=== PATIENT | male | born 1965 | race Caucasian/White ===

== ENCOUNTER 2018-11-09 11:28 | Inpatient (IN) | payer OTHER ==
--- NOTE | 2018-11-09 11:48 | HP ---
CIWA Score Nausea/Vomitin-No Nausea/No Vomiting Muscle Tremors: None Anxiety: 4-Mod. Anxious/Guarded Agitation: 4-Moderately Restless Paroxysmal Sweats: 1-Minimal Palms Moist Orientation: 1-Uncertain about Date Tacttile Disturbances: 2-Mild Itch/Numbness/Burn Auditory Disturbances: 0-None Visual Disturbances: 0-None Headache: 0-None Present (appropriate for admission to alcohol detox) CIWA-Ar Total Score: 12 - Admission Criteria OASAS Guidelines: Admission for Medically Managed Detox: Requires at least one of the followin. CIWA greater than 12 2. Seizures within the past 24 hours 3. Delirium tremens within the past 24 hours 4. Hallucinations within the past 24 hours 5. Acute intervention needed for co occurring medical disorder 6. Acute intervention needed for co occurring psychiatric disorder 7. Severe withdrawal that cannot be handled at a lower level of care (continued vomiting, continued diarrhea, abnormal vital signs) requiring intravenous medication and/or fluids 8. Admission ROS [facility] Chief Complaint: " I need help with alcohol and I can't stop drinking. I also have a cocaine problem. I'm homeless." Allergies/Adverse Reactions: Allergies Allergy/AdvReac Type Severity Reaction Status Date / Time Penicillins Allergy Rash Verified 11/09/18 11:52 History of Present Illness: 53 year old male with history of alcohol dependence and cocaine use disorder. He is drinking 1.5 liters of vodka daily, last drank last night. He blacked out yesterday. He has had seizures in the past. He was here over a year ago. He never smoked ciggarettes. Cocaine was every day 1-2 grams per day, last used yesterday. PMH: Herniated discs and surgery for it in 03/2018, Eczema HTN.on amlodipine Psych: Depression, Anxiety disorder Zoloft in the past. last taken over week ago. ran out meds. - Ebola screening Have you traveled outside of the country in the last 21 days: No Have you had contact with anyone from an Ebola affected area: No Have you been sick,other than usual withdrawal symptoms: No Do you have a fever: No - Review of Systems Constitutional: Diaphoresis EENT: reports: Blurred Vision Respiratory: reports: Cough Cardiac: reports: No Symptoms Reported GI: reports: Constipated, Nausea, Abdominal cramping : reports: No Symptoms Reported Musculoskeletal: reports: No Symptoms Reported Integumentary: reports: Other (eczema) Neuro: reports: Headache, Tremors Endocrine: reports: No Symptoms Reported Hematology: reports: No Symptoms Reported Psychiatric: reports: Judgement Intact, Agitated, Anxious Other Systems: Reviewed and Negative Patient History - Patient Medical History Hx Asthma: No Hx Chronic Obstructive Pulmonary Disease (COPD): No Hx Cardiac Disorders: No Hx Hypertension: Yes Hx Seizures: No Hx Diabetes: No Hx Gastrointestinal Disorders: No Hx Sexually Transmitted Disorders: No Hx Renal Disease (ESRD): No Hx Depression: No - Patient Surgical History Past Surgical History: Yes Other Surgical History: back surgery for herniated discs at [facility] - PPD History Previous Implant?: Yes Documented Results: Negative w/o proof Implanted On Prior R Admission?: Yes Date: 03/31/11 PPD to be Administered?: Yes - Smoking Cessation Smoking history: Never smoked Have you smoked in the past 12 months: No Hx Chewing Tobacco Use: No Initiated information on smoking cessation: Yes 'Breaking Loose' booklet given: 11/09/18 - Substances abused Alcohol Substance route: Oral Frequency: Daily Amount used: 2 LITER OF VODKA Age of first use: 16 Date of last use: 11/08/18 Cocaine Substance route: Inhalation Frequency: Daily Amount used: 2 GRAMS Age of first use: 21 Date of last use: 11/08/18 Admission Physical Exam [facility] - Physical General Appearance: Yes: Mild Distress HEENTM: Yes: EOMI, Hearing grossly Normal, Normocephalic, Normal Voice, FAUSTO, Pharynx Normal, Tm's normal Respiratory: Yes: Chest Non-Tender, Lungs Clear, Normal Breath Sounds, No Respiratory Distress, Accessory Muscle Use Neck: Yes: No masses,lesions,Nodules, Trachea in good position Breast: Yes: Within Normal Limits, Axillae without masses Cardiology: Yes: Regular Rhythm, Regular Rate, S1, S2 Abdominal: Yes: Normal Bowel Sounds, Non Tender, Soft, Protuberent. No: Guarding, Rebound, Tenderness Genitourinary: Yes: Within Normal Limits Back: Yes: Within Normal Limits Musculoskeletal: Yes: full range of Motion, Gait Steady Extremities: Yes: Normal Capillary Refill, Normal Inspection, Normal Range of Motion Neurological: Yes: director mission II-XII NML intact, Fully Oriented, Alert, Motor Strength 5/5, Normal Mood/Affect Integumentary: Yes: Normal Color, Warm Lymphatic: Yes: Within Normal Limits - Diagnostic (1) Alcohol dependence with uncomplicated withdrawal Current Visit: Yes Status: Acute (2) Hypertension Current Visit: Yes Status: Acute (3) Lumbar disc herniation Current Visit: Yes Status: Chronic Screened but not Admitted - Documentation of Visit Screened but not Admitted: No Left Prior to Completion of Assessment: No Insurance Authorization Denied: No Patient Does Not Meet Criteria for Admission: No Alternative Treatment/Penitentiary Info Provided: No Vital Signs - Vital Signs Vital signs refused: No Temperature: 97.8 F Temperature source: Oral Pulse Rate: 71 Respiratory Rate: 20 Blood Pressure: 167/91 BP Location: Left Arm Blood Pressure position: Sitting - Height Height: 5 ft 2 in - Weight Weight: 170 lb Weight measurement method: Standing scale - BMI Body Mass Index (BMI): 31.1 - Bowel Function Bowel Movement: No Inpatient Rehab Admission - Rehab Decision to Admit Inpatient rehab admission?: No - Initial Determination Are CD services needed?: No Free of communicable disease: No Not in need of hospitalization: No - Rehab Admission Criteria Previous failed treatment: No Poor recovery environment: No Comorbidities: No Lacks judgement: No Patient is meeting Inpatient Rehab admission criteria:: No
[2018-11-09 11:59] VITALS: BMI 31.1
[2018-11-09] MEDS ORDERED: METHOCARBAMOL 500 MG TABLET PO PRN (12:24)
[2018-11-09] MEDS ORDERED: hydrOXYzine PAMOATE 25 MG CAPSULE (FP) PO PRN (12:24)
[2018-11-09] MEDS ORDERED: MAGNESIUM HYDROX 2400MG/30ML ORAL SUSPENSION 30 ML CUP PO PRN (12:24)
[2018-11-09] MEDS ORDERED: ACETAMINOPHEN 325 MG TABLET (FP) PO PRN ×2 (12:24)
[2018-11-09] MEDS ORDERED: MAG HYDROX/AL HYDROX/SIMETH 30 ML UNIT-DOSE CUP PO PRN (12:24)
[2018-11-09] MEDS ORDERED: BISMUTH SUBSALICYLATE 524 MG/30 ML UD PO PRN (12:24)
[2018-11-09] MEDS ORDERED: MENTHOL/PHENOL 1 EACH UD MM PRN (12:24)
[2018-11-09] MEDS ORDERED: MAGNESIUM CITRATE 300 ML BOTTLE PO PRN (12:24)
[2018-11-09] MEDS ORDERED: IBUPROFEN 400 MG TABLET (FP) PO PRN (12:24)
[2018-11-09] MEDS ORDERED: chlordiazePOXIDE HCL 10 MG CAPSULE PO PRN (12:24)
[2018-11-09] MEDS: amLODIPine BESYLATE 10 MG TABLET (FP) PO SCH (13:36)
[2018-11-09] MEDS: chlordiazePOXIDE HCL 25 MG CAPSULE PO SCH ×2 (13:37→21:45)
[2018-11-09] MEDS ORDERED: SERTRALINE HCL 50 MG TABLET (FP) PO ONE (13:45)
[2018-11-09 15:40] LABS: HEMATOCRIT 43.8 % (35.4-49); HEMOGLOBIN 14.3 GM/dL (11.7-16.9); MCH 29.6 pg (25.7-33.7); MCHC 32.6 g/dl (32.0-35.9); MEAN CELL VOLUME 90.7 fl (80-96); MEAN PLT VOLUME 9.6 fl (7.5-11.1); PLATELET COUNT 253 K/MM3 (134-434); RBC 4.82 M/mm3 (4.00-5.60); RDW 14.5 % (11.9-15.9); WHITE BLOOD COUNT 7.9 K/mm3 (4.0-10.0)
[2018-11-09 15:49] LABS: ALBUMIN 3.8 g/dl (3.4-5.0); BILIRUBIN,TOTAL 0.5 mg/dL (0.2-1); CALCIUM 9.8 mg/dL (8.5-10.1); CREATININE 0.9 mg/dL (0.55-1.3); POTASSIUM 4.2 mmol/L (3.5-5.1); TOT PROT 7.4 g/dl (6.4-8.2)
[2018-11-09] MEDS: MELATONIN 5 MG TABLETS PO PRN (21:45)
[2018-11-09] MEDS: THIAMINE HCL 100 MG TABLET (FP) PO SCH (21:45)
[2018-11-09] MEDS: HYDROCORTISONE 0.5% TOPICAL CREAM 30 GM TUBE TP SCH (21:46)
[2018-11-10] MEDS: chlordiazePOXIDE HCL 25 MG CAPSULE PO SCH ×3 (06:24→22:39)
[2018-11-10] MEDS ORDERED: hydrOXYzine HCL 25 MG TABLET (FP) PO SCH (10:00)
[2018-11-10] MEDS: amLODIPine BESYLATE 10 MG TABLET (FP) PO SCH (10:04)
[2018-11-10] MEDS: HYDROCORTISONE 0.5% TOPICAL CREAM 30 GM TUBE TP SCH ×2 (10:06→22:39)
[2018-11-10] MEDS: PRENATAL VITAMINS W/ FOLIC ACID TABLET (FP) PO SCH (10:07)
--- NOTE | 2018-11-10 10:19 | CONSULT ---
[facility] Psychiatric Consult - Data Date of interview: 11/10/18 Admission source: [facility] Identifying data: Mr Singleton is a 53 years old single male, father of 4 children, unemployed receiving public assistance, homeless seeking detox treatment for alcohol and cocaine Substance Abuse History: Reports history of alcohol and cocaine use. Refer to addiction counselor's summary for further information Medical History: Significant for hypertension, eczema, history of back surgery. Psychiatric History: Reports that his first psychiatric contact was in 2017 when he was prescribed Zoloft 100 mg/day for depression and Vistaril for anxiety while in residential program at [facility]. He said that he was there for a year and discharged in February 2018. Reports that following discharge from [facility], he was prescribed medications by a psychiatrist at [facility], a clinic in [facility]. He said that he went back to residential at [facility] for another 4 months and he was continued on medications. He was discharged in September 16, 2018 and he went back to [facility] for medication management till he relapsed a few days ago. Denies previous psychiatric hospitalization or suicidal attemot. At present, reports feeling depressed and sleeping poorly Physical/Sexual Abuse/Trauma History: Denies history of emotional, physical or sexual abuse as well as DV relationship. Reports serving in the [employer] from [employer] to 1987. Additional Comment: Reports history of 2 previous arrests including one felony conviction on charges ogf grand gomes.Denies being on parole/probatio at present Mental Status Exam - Mental Status Exam Alert and Oriented to: Time, Place, Person Cognitive Function: Fair Patient Appearance: Well Groomed Mood: Depressed Affect: Appropriate Patient Behavior: Cooperative Speech Pattern: Clear Voice Loudness: Normal Thought Process: Intact, Goal Oriented Thought Disorder: Not Present Hallucinations: Denies Suicidal Ideation: Denies Homicidal Ideation: Denies Insight/Judgement: Poor Sleep: Poorly Appetite: Fair Muscle strength/Tone: Normal Gait/Station: Normal Psychiatric Findings - Problem List ([place] 1, 2,3) (1) Depressive disorder Current Visit: Yes Status: Chronic (2) MDD (major depressive disorder) Current Visit: Yes Status: Ruled-out (3) Substance induced mood disorder Current Visit: Yes Status: Acute (4) Substance-induced sleep disorder Current Visit: Yes Status: Acute (5) Alcohol dependence with uncomplicated withdrawal Current Visit: Yes Status: Acute (6) Cocaine dependence Current Visit: Yes Status: Acute (7) Hypertension Current Visit: Yes Status: Acute (8) Lumbar disc herniation Current Visit: Yes Status: Resolved - Initial Treatment Plan Initial Treatment Plan: 1) Resume Zoloft 100 mg po daily. 2) Start Vistaril 50 mg po Q 4hrs prn for anxiety. 3) Continue inpatient detoxificatio
[2018-11-10] MEDS: SERTRALINE HCL 50 MG TABLET (FP) PO SCH (10:54)
--- NOTE | 2018-11-10 12:58 | PN ---
[facility] CIWA - CIWA Score Nausea/Vomitin-Mild Nausea/No Vomiting Muscle Tremors: 2 Anxiety: 3 Agitation: 2 Paroxysmal Sweats: 1-Minimal Palms Moist Orientation: 0-Oriented Tacttile Disturbances: 1-Very Mild Itch/Numbness Auditory Disturbances: 0-None Visual Disturbances: 0-None Headache: 1-Very Mild CIWA-Ar Total Score: 11 S Progress Note (SOAP) Subjective: alert,irritable,anxious,interrupted sleep,tremor Objective: 11/10/18 12:54 Vital Signs Temperature 97.1 F L 11/10/18 09:34 Pulse Rate 75 11/10/18 09:34 Respiratory Rate 18 11/10/18 09:34 Blood Pressure 157/91 11/10/18 09:34 O2 Sat by Pulse Oximetry (%) 11/10/18 12:55 Laboratory Last Values WBC 7.9 K/mm3 (4.0-10.0) 11/09/18 12:40 RBC 4.82 M/mm3 (4.00-5.60) 11/09/18 12:40 Hgb 14.3 GM/dL (11.7-16.9) 11/09/18 12:40 Hct 43.8 % (35.4-49) 11/09/18 12:40 MCV 90.7 fl (80-96) 11/09/18 12:40 MCH 29.6 pg (25.7-33.7) 11/09/18 12:40 MCHC 32.6 g/dl (32.0-35.9) 11/09/18 12:40 RDW 14.5 % (11.9-15.9) 11/09/18 12:40 Plt Count 253 K/MM3 (134-434) D 11/09/18 12:40 MPV 9.6 fl (7.5-11.1) 11/09/18 12:40 Sodium 140 mmol/L (136-145) 11/09/18 12:40 Potassium 4.2 mmol/L (3.5-5.1) 11/09/18 12:40 Chloride 103 mmol/L (98-107) 11/09/18 12:40 Carbon Dioxide 30 mmol/L (21-32) 11/09/18 12:40 Anion Gap 7 MMOL/L (8-16) L 11/09/18 12:40 BUN 18.0 mg/dL (7-18) 11/09/18 12:40 Creatinine 0.9 mg/dL (0.55-1.3) 11/09/18 12:40 Est GFR (CKD-EPI)AfAm 113.41 11/09/18 12:40 Est GFR (CKD-EPI)NonAf 97.85 11/09/18 12:40 Random Glucose 69 mg/dL (74-106) L 11/09/18 12:40 Calcium 9.8 mg/dL (8.5-10.1) 11/09/18 12:40 Total Bilirubin 0.5 mg/dL (0.2-1) 11/09/18 12:40 AST 18 U/L (15-37) 11/09/18 12:40 ALT 26 U/L (13-61) 11/09/18 12:40 Alkaline Phosphatase 57 U/L (45-117) 11/09/18 12:40 Total Protein 7.4 g/dl (6.4-8.2) 11/09/18 12:40 Albumin 3.8 g/dl (3.4-5.0) 11/09/18 12:40 RPR Titer Nonreactive (NONREACTIVE) 11/09/18 12:40 Assessment: 11/10/18 12:58 withdrawal symptom Plan: continue detox librium regimen,initial glucose 69,bgm in am
[2018-11-10] MEDS: THIAMINE HCL 100 MG TABLET (FP) PO SCH (22:39)
[2018-11-10] MEDS: MELATONIN 5 MG TABLETS PO PRN (22:39)
[2018-11-11] MEDS: chlordiazePOXIDE 5 MG CAPSULE PO SCH ×3 (07:13→22:18)
[2018-11-11] MEDS: PRENATAL VITAMINS W/ FOLIC ACID TABLET (FP) PO SCH (09:15)
[2018-11-11] MEDS: HYDROCORTISONE 0.5% TOPICAL CREAM 30 GM TUBE TP SCH ×2 (09:15→22:19)
[2018-11-11] MEDS: amLODIPine BESYLATE 10 MG TABLET (FP) PO SCH (09:15)
[2018-11-11] MEDS: SERTRALINE HCL 50 MG TABLET (FP) PO SCH (09:16)
[2018-11-11] MEDS: hydrOXYzine PAMOATE 50 MG CAPSULE (FP) PO PRN ×2 (12:12→19:55)
--- NOTE | 2018-11-11 12:19 | PN ---
[facility] CIWA - CIWA Score Nausea/Vomitin Muscle Tremors: 2 Anxiety: 1-Mildly Anxious Agitation: 0-Normal Activity Paroxysmal Sweats: 2 Orientation: 0-Oriented Tacttile Disturbances: 2-Mild Itch/Numbness/Burn Auditory Disturbances: 0-None Visual Disturbances: 0-None Headache: 1-Very Mild CIWA-Ar Total Score: 11 S Progress Note (SOAP) Subjective: c/o of nausea, constipation, chill, interrupted sleep Objective: 11/11/18 12:25 Vital Signs Temperature 97.7 F 11/11/18 09:24 Pulse Rate 83 11/11/18 09:24 Respiratory Rate 18 11/11/18 09:24 Blood Pressure 139/92 11/11/18 09:24 O2 Sat by Pulse Oximetry (%) Laboratory Last Values WBC 7.9 K/mm3 (4.0-10.0) 11/09/18 12:40 RBC 4.82 M/mm3 (4.00-5.60) 11/09/18 12:40 Hgb 14.3 GM/dL (11.7-16.9) 11/09/18 12:40 Hct 43.8 % (35.4-49) 11/09/18 12:40 MCV 90.7 fl (80-96) 11/09/18 12:40 MCH 29.6 pg (25.7-33.7) 11/09/18 12:40 MCHC 32.6 g/dl (32.0-35.9) 11/09/18 12:40 RDW 14.5 % (11.9-15.9) 11/09/18 12:40 Plt Count 253 K/MM3 (134-434) D 11/09/18 12:40 MPV 9.6 fl (7.5-11.1) 11/09/18 12:40 Sodium 140 mmol/L (136-145) 11/09/18 12:40 Potassium 4.2 mmol/L (3.5-5.1) 11/09/18 12:40 Chloride 103 mmol/L (98-107) 11/09/18 12:40 Carbon Dioxide 30 mmol/L (21-32) 11/09/18 12:40 Anion Gap 7 MMOL/L (8-16) L 11/09/18 12:40 BUN 18.0 mg/dL (7-18) 11/09/18 12:40 Creatinine 0.9 mg/dL (0.55-1.3) 11/09/18 12:40 Est GFR (CKD-EPI)AfAm 113.41 11/09/18 12:40 Est GFR (CKD-EPI)NonAf 97.85 11/09/18 12:40 POC Glucometer 87 UNITS (80-120) 11/11/18 07:17 Random Glucose 69 mg/dL (74-106) L 11/09/18 12:40 Calcium 9.8 mg/dL (8.5-10.1) 11/09/18 12:40 Total Bilirubin 0.5 mg/dL (0.2-1) 11/09/18 12:40 AST 18 U/L (15-37) 11/09/18 12:40 ALT 26 U/L (13-61) 11/09/18 12:40 Alkaline Phosphatase 57 U/L (45-117) 11/09/18 12:40 Total Protein 7.4 g/dl (6.4-8.2) 11/09/18 12:40 Albumin 3.8 g/dl (3.4-5.0) 11/09/18 12:40 RPR Titer Nonreactive (NONREACTIVE) 11/09/18 12:40 labs reviewed Assessment: Aox3 no acute distress WNL EENT no abdominal tenderness full ROM no gait abnormality Plan: increase PO fluids continue detox continue to monitor
[2018-11-11] MEDS: MELATONIN 5 MG TABLETS PO PRN (22:18)
[2018-11-11] MEDS: THIAMINE HCL 100 MG TABLET (FP) PO SCH (22:18)
[2018-11-12] MEDS ORDERED: chlordiazePOXIDE HCL 10 MG CAPSULE PO PRN
[2018-11-12] MEDS: chlordiazePOXIDE HCL 10 MG CAPSULE PO SCH ×3 (07:27→21:43)
[2018-11-12] MEDS: amLODIPine BESYLATE 10 MG TABLET (FP) PO SCH (10:35)
[2018-11-12] MEDS: PRENATAL VITAMINS W/ FOLIC ACID TABLET (FP) PO SCH (10:35)
[2018-11-12] MEDS: SERTRALINE HCL 50 MG TABLET (FP) PO SCH (10:35)
[2018-11-12] MEDS: HYDROCORTISONE 0.5% TOPICAL CREAM 30 GM TUBE TP SCH ×2 (10:35→21:43)
--- NOTE | 2018-11-12 12:07 | PN ---
S CIWA - CIWA Score Nausea/Vomitin-No Nausea/No Vomiting Muscle Tremors: None Anxiety: 2 Agitation: 0-Normal Activity Paroxysmal Sweats: 2 Orientation: 0-Oriented Tacttile Disturbances: 0-None Auditory Disturbances: 0-None Visual Disturbances: 0-None Headache: 2-Mild CIWA-Ar Total Score: 6 [facility] Progress Note (SOAP) Subjective: c/o anxiety, sweats, and headache. Objective: 11/12/18 12:05 Vital Signs 11/12/18 11/12/18 07:24 09:50 Temperature 97.9 F 98.2 F Pulse Rate 61 68 Respiratory 18 17 Rate Blood Pressure 119/74 112/64 Lab Results WBC 7.9 K/mm3 (4.0-10.0) 11/09/18 12:40 RBC 4.82 M/mm3 (4.00-5.60) 11/09/18 12:40 Hgb 14.3 GM/dL (11.7-16.9) 11/09/18 12:40 Hct 43.8 % (35.4-49) 11/09/18 12:40 MCV 90.7 fl (80-96) 11/09/18 12:40 MCHC 32.6 g/dl (32.0-35.9) 11/09/18 12:40 RDW 14.5 % (11.9-15.9) 11/09/18 12:40 Plt Count 253 K/MM3 (134-434) D 11/09/18 12:40 Sodium 140 mmol/L (136-145) 11/09/18 12:40 Potassium 4.2 mmol/L (3.5-5.1) 11/09/18 12:40 Chloride 103 mmol/L (98-107) 11/09/18 12:40 Carbon Dioxide 30 mmol/L (21-32) 11/09/18 12:40 Anion Gap 7 MMOL/L (8-16) L 11/09/18 12:40 BUN 18.0 mg/dL (7-18) 11/09/18 12:40 Creatinine 0.9 mg/dL (0.55-1.3) 11/09/18 12:40 Random Glucose 69 mg/dL (74-106) L 11/09/18 12:40 Calcium 9.8 mg/dL (8.5-10.1) 11/09/18 12:40 Labs noted. Assessment: 11/12/18 12:06 AOX3, in no acute respiratory distress. Full ROM, ambulating in the unit. Withdrawal symptoms. For D/C tmoro. 11/12/18 12:06 Plan: continue detox. D/C in AM.
[2018-11-12] MEDS: THIAMINE HCL 100 MG TABLET (FP) PO SCH (21:43)
[2018-11-12] MEDS: MELATONIN 5 MG TABLETS PO PRN (21:43)
[2018-11-13] MEDS ORDERED: chlordiazePOXIDE HCL 10 MG CAPSULE PO ONE (05:00)
[2018-11-13 10:07] VITALS: BP 144/73; PULSE 57; TEMP 97.7
[2018-11-13] MEDS: amLODIPine BESYLATE 10 MG TABLET (FP) PO SCH (10:12)
[2018-11-13] MEDS: PRENATAL VITAMINS W/ FOLIC ACID TABLET (FP) PO SCH (10:12)
[2018-11-13] MEDS: SERTRALINE HCL 50 MG TABLET (FP) PO SCH (10:12)
[2018-11-13] MEDS: HYDROCORTISONE 0.5% TOPICAL CREAM 30 GM TUBE TP SCH (10:12)
[2018-11-13] MEDS: hydrOXYzine PAMOATE 50 MG CAPSULE (FP) PO PRN (10:15)
--- NOTE | 2018-11-13 13:16 | DS ---
[facility] Detox Discharge Summary Admission Date: 11/09/18 Discharge Date: 11/13/18 - History Present History: Alcohol Dependence, Cocaine Dependence Additional Comments: Patient completed detox successfully and accepted admission to [facility]. Patient is stable and denies any complaints. Pertinent Past History: ETOH dependence Cocaine dependenc HTN Eczema Anxiety and Depression - Physical Exam Results Vital Signs: Vital Signs Temperature 97.7 F 11/13/18 10:06 Pulse Rate 57 L 11/13/18 10:06 Respiratory Rate 18 11/13/18 10:06 Blood Pressure 144/73 11/13/18 10:06 O2 Sat by Pulse Oximetry (%) Pertinent Admission Physical Exam Findings: Withdrawal sxs Laboratory Tests 11/09/18 11/09/18 11/09/18 12:40 12:40 12:40 WBC 7.9 RBC 4.82 Hgb 14.3 Hct 43.8 MCV 90.7 MCH 29.6 MCHC 32.6 RDW 14.5 Plt Count 253 D MPV 9.6 Sodium 140 Potassium 4.2 Chloride 103 Carbon Dioxide 30 Anion Gap 7 L BUN 18.0 Creatinine 0.9 Est GFR (CKD-EPI)AfAm 113.41 Est GFR (CKD-EPI)NonAf 97.85 POC Glucometer Random Glucose 69 L Calcium 9.8 Total Bilirubin 0.5 AST 18 ALT 26 Alkaline Phosphatase 57 Total Protein 7.4 Albumin 3.8 RPR Titer Nonreactive 11/11/18 11/12/18 11/13/18 07:17 07:01 06:57 WBC RBC Hgb Hct MCV MCH MCHC RDW Plt Count MPV Sodium Potassium Chloride Carbon Dioxide Anion Gap BUN Creatinine Est GFR (CKD-EPI)AfAm Est GFR (CKD-EPI)NonAf POC Glucometer 87 94 92 Random Glucose Calcium Total Bilirubin AST ALT Alkaline Phosphatase Total Protein Albumin RPR Titer Labs reviewed - Medication Discharge Medications: Ambulatory Orders Amlodipine Besylate [Norvasc -] 10 mg PO DAILY 11/09/18 Hydroxyzine HCl 50 mg PO DAILY 11/09/18 Sertraline HCl [Zoloft -] 100 mg PO DAILY 11/09/18 - Diagnosis (1) Eczema Current Visit: Yes Status: Acute (2) Anxiety and depression Current Visit: Yes Status: Chronic (3) Alcohol dependence with uncomplicated withdrawal Current Visit: Yes Status: Acute (4) Cocaine dependence Current Visit: Yes Status: Chronic (5) Hypertension Current Visit: Yes Status: Chronic - AMA Did Patient Leave Against Medical Advice: No (Patient accepted admission to [facility])
== END 2018-11-13 12:18 | disposition other institution (70) | DRG 774 ==
LOC: YASAS 11:28 → Y6N 12:47
PROVIDERS: ADMIT Surgery; ATTEND Surgery
PROC: HZ2ZZZZ Detoxification Services for Substance Abuse Treatment (ICD-10-PCS; principal; 2018-11-09)
DX: F14.20 Cocaine dependence, uncomplicated (principal); F32.9 Major depressive disorder, single episode, unspecified; F41.9 Anxiety disorder, unspecified; F19.24 Other psychoactive substance dependence with psychoactive substance-induced mood disorder; F19.282 Other psychoactive substance dependence with psychoactive substance-induced sleep disorder; I10 Essential (primary) hypertension; L30.9 Dermatitis, unspecified; M51.26 Other intervertebral disc displacement, lumbar region
CPT/HCPCS: 36415; 80053; 82962; 85027; 86593

== ENCOUNTER 2018-11-13 12:37 | Inpatient (IN) | payer OTHER ==
--- NOTE | 2018-11-13 13:01 | HP ---
[facility] Rehab Assess/Revision - Admission History Admitted to Rehab from: [facility] Date of Admission to Rehab: 11/13/18 - Findings Detox History & Physical reviewed: Yes Concur with findings: Yes Inpatient Rehab Admission - Rehab Decision to Admit Inpatient rehab admission?: Yes - Initial Determination Are CD services needed?: No Free of communicable disease: Yes Not in need of hospitalization: Yes - Rehab Admission Criteria Previous failed treatment: Yes Poor recovery environment: Yes Comorbidities: Yes Lacks judgement: Yes Patient is meeting Inpatient Rehab admission criteria:: Yes
[2018-11-13] MEDS ORDERED: P-EPHED 60MG/TRIPROLIDI 2.5MG TABLET PO PRN (13:05)
[2018-11-13] MEDS ORDERED: IBUPROFEN 400 MG TABLET (FP) PO PRN (13:05)
[2018-11-13] MEDS ORDERED: MAGNESIUM CITRATE 300 ML BOTTLE PO PRN (13:05)
[2018-11-13] MEDS ORDERED: LOPERAMIDE HCL 2 MG CAPSULE PO PRN (13:05)
[2018-11-13] MEDS ORDERED: MENTHOL/PHENOL 1 EACH UD MM PRN (13:05)
[2018-11-13] MEDS ORDERED: NICOTINE POLACRILEX 2 MG GUM BUC PRN (13:05)
[2018-11-13] MEDS ORDERED: guaiFENesin 200 MG/10 ML 10 ML UNIT-DOSE CUPS PO PRN (13:05)
[2018-11-13] MEDS: MELATONIN 5 MG TABLETS PO PRN (21:34)
[2018-11-13] MEDS: THIAMINE HCL 100 MG TABLET (FP) PO SCH (21:34)
[2018-11-13] MEDS: hydrOXYzine PAMOATE 50 MG CAPSULE (FP) PO PRN (21:35)
[2018-11-14] MEDS ORDERED: HYDROCORTISONE 0.5% TOPICAL CREAM 30 GM TUBE TP PRN (08:34)
[2018-11-14] MEDS: PRENATAL VITAMINS W/ FOLIC ACID TABLET (FP) PO SCH (10:16)
[2018-11-14] MEDS: amLODIPine BESYLATE 10 MG TABLET (FP) PO SCH (10:16)
[2018-11-14] MEDS: SERTRALINE HCL 50 MG TABLET (FP) PO SCH (10:17)
[2018-11-14] MEDS: hydrOXYzine PAMOATE 50 MG CAPSULE (FP) PO PRN ×3 (10:18→21:18)
[2018-11-14] MEDS ORDERED: PNEUMOC 13-VAL CONJ-DIP CRM/PF 0.5 ML DISP.SYRIN IM ONE (12:00)
[2018-11-14] MEDS: THIAMINE HCL 100 MG TABLET (FP) PO SCH (21:16)
[2018-11-14] MEDS: MAGNESIUM HYDROX 2400MG/30ML ORAL SUSPENSION 30 ML CUP PO PRN (21:17)
[2018-11-14] MEDS: MELATONIN 5 MG TABLETS PO PRN (21:17)
--- NOTE | 2018-11-15 09:49 | PN ---
[facility] Progress Note Note: Pt seen for a new cream for eczema. Pt states hydrocortisone is not working for him. Would like something stronger. Lidex ordered for lesions on forearm and elbows. Pt has prn vistaril, which may help with itching.
[2018-11-15] MEDS: amLODIPine BESYLATE 10 MG TABLET (FP) PO SCH (10:11)
[2018-11-15] MEDS: PRENATAL VITAMINS W/ FOLIC ACID TABLET (FP) PO SCH (10:11)
[2018-11-15] MEDS: SERTRALINE HCL 50 MG TABLET (FP) PO SCH (10:11)
[2018-11-15] MEDS: hydrOXYzine PAMOATE 50 MG CAPSULE (FP) PO PRN ×2 (10:11→18:27)
[2018-11-15] MEDS: FLUOCINONIDE 0.05% TOP OINT (60 GM TUBE) TP SCH ×2 (11:17→21:27)
[2018-11-15] MEDS: THIAMINE HCL 100 MG TABLET (FP) PO SCH (21:27)
[2018-11-15] MEDS: MELATONIN 5 MG TABLETS PO PRN (21:28)
--- NOTE | 2018-11-16 07:54 | PN ---
S Progress Note Note: Patient complains of sleeping poorly despite taking Melatonin 5 mg/hs prn. Discussed with hypnotic properties of Belsomra and he agreed to try it
[2018-11-16] MEDS: PRENATAL VITAMINS W/ FOLIC ACID TABLET (FP) PO SCH (09:50)
[2018-11-16] MEDS: amLODIPine BESYLATE 10 MG TABLET (FP) PO SCH (09:50)
[2018-11-16] MEDS: SERTRALINE HCL 50 MG TABLET (FP) PO SCH (09:50)
[2018-11-16] MEDS: hydrOXYzine PAMOATE 50 MG CAPSULE (FP) PO PRN ×3 (09:51→21:14)
[2018-11-16] MEDS: FLUOCINONIDE 0.05% TOP OINT (60 GM TUBE) TP SCH ×2 (09:52→21:15)
[2018-11-16] MEDS: THIAMINE HCL 100 MG TABLET (FP) PO SCH (21:13)
[2018-11-16] MEDS: MELATONIN 5 MG TABLETS PO PRN (21:14)
[2018-11-17] MEDS: SERTRALINE HCL 50 MG TABLET (FP) PO SCH (10:21)
[2018-11-17] MEDS: PRENATAL VITAMINS W/ FOLIC ACID TABLET (FP) PO SCH (10:21)
[2018-11-17] MEDS: amLODIPine BESYLATE 10 MG TABLET (FP) PO SCH (10:21)
[2018-11-17] MEDS: FLUOCINONIDE 0.05% TOP OINT (60 GM TUBE) TP SCH ×2 (10:22→21:35)
[2018-11-17] MEDS: hydrOXYzine PAMOATE 50 MG CAPSULE (FP) PO PRN ×3 (10:22→21:36)
[2018-11-17] MEDS: SUVOREXANT 10 MG TABLET PO PRN (21:34)
[2018-11-17] MEDS: THIAMINE HCL 100 MG TABLET (FP) PO SCH (21:34)
[2018-11-18] MEDS: PRENATAL VITAMINS W/ FOLIC ACID TABLET (FP) PO SCH (10:14)
[2018-11-18] MEDS: amLODIPine BESYLATE 10 MG TABLET (FP) PO SCH (10:14)
[2018-11-18] MEDS: SERTRALINE HCL 50 MG TABLET (FP) PO SCH (10:14)
[2018-11-18] MEDS: hydrOXYzine PAMOATE 50 MG CAPSULE (FP) PO PRN ×3 (10:15→21:10)
[2018-11-18] MEDS: FLUOCINONIDE 0.05% TOP OINT (60 GM TUBE) TP SCH ×2 (10:16→21:09)
[2018-11-18] MEDS: MELATONIN 5 MG TABLETS PO PRN (21:09)
[2018-11-18] MEDS: THIAMINE HCL 100 MG TABLET (FP) PO SCH (21:09)
[2018-11-18] MEDS: SUVOREXANT 10 MG TABLET PO PRN (21:10)
[2018-11-19] MEDS: SERTRALINE HCL 50 MG TABLET (FP) PO SCH (09:26)
[2018-11-19] MEDS: amLODIPine BESYLATE 10 MG TABLET (FP) PO SCH (09:26)
[2018-11-19] MEDS: PRENATAL VITAMINS W/ FOLIC ACID TABLET (FP) PO SCH (09:26)
[2018-11-19] MEDS: hydrOXYzine PAMOATE 50 MG CAPSULE (FP) PO PRN ×2 (09:26→16:33)
[2018-11-19] MEDS: FLUOCINONIDE 0.05% TOP OINT (60 GM TUBE) TP SCH ×2 (09:27→21:22)
[2018-11-19] MEDS: MAG HYDROX/AL HYDROX/SIMETH 30 ML UNIT-DOSE CUP PO PRN (14:47)
[2018-11-19] MEDS: ACETAMINOPHEN 325 MG TABLET (FP) PO PRN (16:33)
[2018-11-19] MEDS: THIAMINE HCL 100 MG TABLET (FP) PO SCH (21:22)
[2018-11-19] MEDS: SUVOREXANT 10 MG TABLET PO PRN (21:23)
[2018-11-20] MEDS: amLODIPine BESYLATE 10 MG TABLET (FP) PO SCH (09:08)
[2018-11-20] MEDS: PRENATAL VITAMINS W/ FOLIC ACID TABLET (FP) PO SCH (09:08)
[2018-11-20] MEDS: SERTRALINE HCL 50 MG TABLET (FP) PO SCH (09:08)
[2018-11-20] MEDS: FLUOCINONIDE 0.05% TOP OINT (60 GM TUBE) TP SCH ×2 (09:09→21:05)
[2018-11-20] MEDS: hydrOXYzine PAMOATE 50 MG CAPSULE (FP) PO PRN ×2 (09:09→13:58)
[2018-11-20] MEDS: ACETAMINOPHEN 325 MG TABLET (FP) PO PRN (13:58)
[2018-11-20] MEDS: MAG HYDROX/AL HYDROX/SIMETH 30 ML UNIT-DOSE CUP PO PRN ×2 (15:20→21:06)
[2018-11-20] MEDS: MELATONIN 5 MG TABLETS PO PRN (21:05)
[2018-11-20] MEDS: THIAMINE HCL 100 MG TABLET (FP) PO SCH (21:05)
[2018-11-20] MEDS: SUVOREXANT 10 MG TABLET PO PRN (21:07)
[2018-11-21] MEDS: PRENATAL VITAMINS W/ FOLIC ACID TABLET (FP) PO SCH (09:42)
[2018-11-21] MEDS: SERTRALINE HCL 50 MG TABLET (FP) PO SCH (09:42)
[2018-11-21] MEDS: amLODIPine BESYLATE 10 MG TABLET (FP) PO SCH (09:42)
[2018-11-21] MEDS: hydrOXYzine PAMOATE 50 MG CAPSULE (FP) PO PRN ×3 (09:43→21:28)
[2018-11-21] MEDS: FLUOCINONIDE 0.05% TOP OINT (60 GM TUBE) TP SCH ×2 (09:44→21:25)
[2018-11-21] MEDS: THIAMINE HCL 100 MG TABLET (FP) PO SCH (21:25)
[2018-11-21] MEDS: SUVOREXANT 10 MG TABLET PO PRN (21:27)
[2018-11-22] MEDS: hydrOXYzine PAMOATE 50 MG CAPSULE (FP) PO PRN ×3 (09:36→19:19)
[2018-11-22] MEDS: amLODIPine BESYLATE 10 MG TABLET (FP) PO SCH (09:36)
[2018-11-22] MEDS: SERTRALINE HCL 50 MG TABLET (FP) PO SCH (09:36)
[2018-11-22] MEDS: PRENATAL VITAMINS W/ FOLIC ACID TABLET (FP) PO SCH (09:36)
[2018-11-22] MEDS: FLUOCINONIDE 0.05% TOP OINT (60 GM TUBE) TP SCH ×2 (09:37→21:04)
[2018-11-22] MEDS: THIAMINE HCL 100 MG TABLET (FP) PO SCH (21:04)
[2018-11-22] MEDS: MELATONIN 5 MG TABLETS PO PRN (21:05)
[2018-11-22] MEDS: SUVOREXANT 10 MG TABLET PO PRN (21:05)
[2018-11-23] MEDS: hydrOXYzine PAMOATE 50 MG CAPSULE (FP) PO PRN ×3 (10:44→21:11)
[2018-11-23] MEDS: amLODIPine BESYLATE 10 MG TABLET (FP) PO SCH (10:44)
[2018-11-23] MEDS: SERTRALINE HCL 50 MG TABLET (FP) PO SCH (10:44)
[2018-11-23] MEDS: FLUOCINONIDE 0.05% TOP OINT (60 GM TUBE) TP SCH ×2 (10:44→21:09)
[2018-11-23] MEDS: PRENATAL VITAMINS W/ FOLIC ACID TABLET (FP) PO SCH (10:44)
--- NOTE | 2018-11-23 11:25 | PN ---
[facility] Progress Note (SOAP) Subjective: patient told counselor that he wanted to hurt himself. Was immediately seen by counselor and corporate physical security supervisor. At that time he denied that he wanted to hurt himself and that he was only saying that because of how bad her felt. Denied having a plan. Reviewed the same with patient, who confirmed that he only said he wanted to hurt himself because he did not want to go to [facility] [employer] in-[facility], but a snf house. Endorsed to this provider that he did not have a plan. Described the issues that lead to his feelings, ETOH use, loss of belongings, loss of friend after an argument, living in a half-way. He wants psychiatric therapy when he is discharged to help deal with his depression. He is presently on zoloft for his depression. States his depression is "On top of me." Objective: General: depressed affect. HEENTM: PERRLA, normocephalic Lungs: clear Heart: s1 s2 Abd: soft, +BS Neuro: CN 2-12 intact. 11/23/18 11:23 Vital Signs (72 hours) 11/21/18 11/21/18 11/21/18 00:30 03:30 07:00 Temperature 98 F Pulse Rate 55 L Respiratory 18 18 18 Rate Blood Pressure 136/86 11/21/18 11/22/18 11/22/18 09:30 00:30 03:30 Temperature Pulse Rate 56 L Respiratory 18 18 18 Rate Blood Pressure 139/91 11/22/18 11/22/18 11/23/18 07:03 10:00 00:30 Temperature 98.1 F 98.1 F Pulse Rate 55 L 67 Respiratory 18 18 18 Rate Blood Pressure 145/81 146/89 11/23/18 11/23/18 11/23/18 03:30 07:09 09:30 Temperature 97.9 F Pulse Rate 61 68 Respiratory 18 18 18 Rate Blood Pressure 145/88 129/80 11/23/18 11:24 Assessment: Depression 11/23/18 11:25 Plan: Psych consult ordered. Counselors will work towards a referral to [facility]. IF that is unavailable, he will be referred to a Crisis Center.
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
[2018-11-23] MEDS: THIAMINE HCL 100 MG TABLET (FP) PO SCH (21:09)
[2018-11-23] MEDS: MELATONIN 5 MG TABLETS PO PRN (21:09)
[2018-11-23] MEDS: ARIPiprazole 2 MG TABLET PO SCH (21:10)
[2018-11-24] MEDS: PRENATAL VITAMINS W/ FOLIC ACID TABLET (FP) PO SCH (09:36)
[2018-11-24] MEDS: FLUOCINONIDE 0.05% TOP OINT (60 GM TUBE) TP SCH ×2 (09:36→21:12)
[2018-11-24] MEDS: SERTRALINE HCL 50 MG TABLET (FP) PO SCH (09:36)
[2018-11-24] MEDS: amLODIPine BESYLATE 10 MG TABLET (FP) PO SCH (09:36)
[2018-11-24] MEDS: hydrOXYzine PAMOATE 50 MG CAPSULE (FP) PO PRN ×3 (09:36→21:11)
[2018-11-24] MEDS: MELATONIN 5 MG TABLETS PO PRN (21:11)
[2018-11-24] MEDS: THIAMINE HCL 100 MG TABLET (FP) PO SCH (21:11)
[2018-11-24] MEDS: ARIPiprazole 2 MG TABLET PO SCH (21:12)
[2018-11-25] MEDS: PRENATAL VITAMINS W/ FOLIC ACID TABLET (FP) PO SCH (10:18)
[2018-11-25] MEDS: amLODIPine BESYLATE 10 MG TABLET (FP) PO SCH (10:18)
[2018-11-25] MEDS: SERTRALINE HCL 50 MG TABLET (FP) PO SCH (10:18)
[2018-11-25] MEDS ORDERED: PT OWN MED DRAWER 7, Y5N ONE (10:20)
[2018-11-25] MEDS: MAG HYDROX/AL HYDROX/SIMETH 30 ML UNIT-DOSE CUP PO PRN (10:20)
[2018-11-25] MEDS: FLUOCINONIDE 0.05% TOP OINT (60 GM TUBE) TP SCH ×2 (10:21→21:16)
[2018-11-25] MEDS: hydrOXYzine PAMOATE 50 MG CAPSULE (FP) PO PRN ×2 (14:18→21:18)
--- NOTE | 2018-11-25 14:45 | PN ---
[facility] Progress Note Note: Psychiatry Attending's note : Brief encounter with patient. Mr Areli approached MD to report on his progress. Feels better. Expresses concern about housing status. " I wonder if I can get a bed at a 3/4 residence on time at my discharge." Otherwise, mental status remains stable. No psychosis. Improved mood. Patient does not endorse suicidal or homicidal ideation, intent or plan. Visble on unit. Sociable. Decently groomed. Eats and sleeps well. Adherent to his medications. No report of adverse effects. Baseline hospital course.
[2018-11-25] MEDS: MELATONIN 5 MG TABLETS PO PRN (21:16)
[2018-11-25] MEDS: THIAMINE HCL 100 MG TABLET (FP) PO SCH (21:16)
[2018-11-25] MEDS: ARIPiprazole 2 MG TABLET PO SCH (21:17)
[2018-11-25] MEDS: ACETAMINOPHEN 325 MG TABLET (FP) PO PRN (21:18)
[2018-11-26] MEDS: SERTRALINE HCL 50 MG TABLET (FP) PO SCH (10:12)
[2018-11-26] MEDS: amLODIPine BESYLATE 10 MG TABLET (FP) PO SCH (10:12)
[2018-11-26] MEDS: FLUOCINONIDE 0.05% TOP OINT (60 GM TUBE) TP SCH ×2 (10:12→21:28)
[2018-11-26] MEDS: PRENATAL VITAMINS W/ FOLIC ACID TABLET (FP) PO SCH (10:12)
[2018-11-26] MEDS: hydrOXYzine PAMOATE 50 MG CAPSULE (FP) PO PRN ×3 (10:13→19:00)
[2018-11-26] MEDS: ARIPiprazole 2 MG TABLET PO SCH (21:28)
[2018-11-26] MEDS: THIAMINE HCL 100 MG TABLET (FP) PO SCH (21:28)
[2018-11-26] MEDS: MELATONIN 5 MG TABLETS PO PRN (21:28)
[2018-11-27] MEDS: SERTRALINE HCL 50 MG TABLET (FP) PO SCH (09:50)
[2018-11-27] MEDS: PRENATAL VITAMINS W/ FOLIC ACID TABLET (FP) PO SCH (09:50)
[2018-11-27] MEDS: hydrOXYzine PAMOATE 50 MG CAPSULE (FP) PO PRN ×3 (09:50→18:49)
[2018-11-27] MEDS: amLODIPine BESYLATE 10 MG TABLET (FP) PO SCH (09:50)
[2018-11-27] MEDS: FLUOCINONIDE 0.05% TOP OINT (60 GM TUBE) TP SCH ×2 (09:50→21:12)
[2018-11-27] MEDS: MAGNESIUM HYDROX 2400MG/30ML ORAL SUSPENSION 30 ML CUP PO PRN (14:30)
[2018-11-27] MEDS: THIAMINE HCL 100 MG TABLET (FP) PO SCH (21:11)
[2018-11-27] MEDS: ARIPiprazole 2 MG TABLET PO SCH (21:11)
[2018-11-27] MEDS: MELATONIN 5 MG TABLETS PO PRN (21:11)
[2018-11-28] MEDS ORDERED: PT OWN MED DRAWER 7, Y5N ONE ×2 (08:33→18:50)
[2018-11-28] MEDS: amLODIPine BESYLATE 10 MG TABLET (FP) PO SCH (09:30)
[2018-11-28] MEDS: SERTRALINE HCL 50 MG TABLET (FP) PO SCH (09:30)
[2018-11-28] MEDS: FLUOCINONIDE 0.05% TOP OINT (60 GM TUBE) TP SCH ×2 (09:31→21:18)
[2018-11-28] MEDS: PRENATAL VITAMINS W/ FOLIC ACID TABLET (FP) PO SCH (09:31)
[2018-11-28] MEDS: hydrOXYzine PAMOATE 50 MG CAPSULE (FP) PO PRN ×2 (09:31→14:24)
[2018-11-28] MEDS: ARIPiprazole 2 MG TABLET PO SCH (21:18)
[2018-11-28] MEDS: THIAMINE HCL 100 MG TABLET (FP) PO SCH (21:18)
[2018-11-28] MEDS: MELATONIN 5 MG TABLETS PO PRN (21:19)
[2018-11-28] MEDS: SUVOREXANT 10 MG TABLET PO PRN (21:19)
[2018-11-29] MEDS: PRENATAL VITAMINS W/ FOLIC ACID TABLET (FP) PO SCH (09:11)
[2018-11-29] MEDS: amLODIPine BESYLATE 10 MG TABLET (FP) PO SCH (09:11)
[2018-11-29] MEDS: SERTRALINE HCL 50 MG TABLET (FP) PO SCH (09:11)
[2018-11-29] MEDS: hydrOXYzine PAMOATE 50 MG CAPSULE (FP) PO PRN ×3 (09:11→21:37)
[2018-11-29] MEDS: FLUOCINONIDE 0.05% TOP OINT (60 GM TUBE) TP SCH ×2 (09:13→21:35)
[2018-11-29] MEDS: THIAMINE HCL 100 MG TABLET (FP) PO SCH (21:35)
[2018-11-29] MEDS: ARIPiprazole 2 MG TABLET PO SCH (21:35)
[2018-11-29] MEDS: SUVOREXANT 10 MG TABLET PO PRN (21:37)
[2018-11-30] MEDS: amLODIPine BESYLATE 10 MG TABLET (FP) PO SCH (09:45)
[2018-11-30] MEDS: PRENATAL VITAMINS W/ FOLIC ACID TABLET (FP) PO SCH (09:45)
[2018-11-30] MEDS: hydrOXYzine PAMOATE 50 MG CAPSULE (FP) PO PRN ×2 (09:45→14:11)
[2018-11-30] MEDS: MAG HYDROX/AL HYDROX/SIMETH 30 ML UNIT-DOSE CUP PO PRN (09:45)
[2018-11-30] MEDS: SERTRALINE HCL 50 MG TABLET (FP) PO SCH (09:45)
[2018-11-30] MEDS: FLUOCINONIDE 0.05% TOP OINT (60 GM TUBE) TP SCH ×2 (10:33→21:46)
--- NOTE | 2018-11-30 11:23 | PN ---
S Progress Note (SOAP) Subjective: Patient fell coming out of the bathroom. States his slippers were wet so he slipped. Denies pain. Objective: General: No apparent distress Neuro: Cn 2-12 intact; no neurological deficits MSK: Right knee: no bruising noted; medial aspect swollen, non tender to palpation, creptius felt with bending of knee. Left :no swelling or bruising noted, no crepitus, no tenderness to palpation. 11/30/18 11:19 11/30/18 11:19 Assessment: Fall 11/30/18 11:21 Plan: Knee x-ray ordered. Advised patient to take Tylenol if he feels pain, cautioned patient about walking on wet surfaces. Protocol 2 initiated. RN to apply ice pack.
[2018-11-30] MEDS: ARIPiprazole 2 MG TABLET PO SCH (21:46)
[2018-11-30] MEDS: THIAMINE HCL 100 MG TABLET (FP) PO SCH (21:46)
[2018-11-30] MEDS: MELATONIN 5 MG TABLETS PO PRN (21:47)
[2018-11-30] MEDS: SUVOREXANT 10 MG TABLET PO PRN (21:48)
[2018-12-01] MEDS: PRENATAL VITAMINS W/ FOLIC ACID TABLET (FP) PO SCH (10:33)
[2018-12-01] MEDS: hydrOXYzine PAMOATE 50 MG CAPSULE (FP) PO PRN ×2 (10:33→15:11)
[2018-12-01] MEDS: amLODIPine BESYLATE 10 MG TABLET (FP) PO SCH (10:33)
[2018-12-01] MEDS: FLUOCINONIDE 0.05% TOP OINT (60 GM TUBE) TP SCH ×2 (10:34→21:38)
[2018-12-01] MEDS: SERTRALINE HCL 50 MG TABLET (FP) PO SCH (10:54)
--- NOTE | 2018-12-01 15:54 | PN ---
[facility] Progress Note Note: Psychiatric nurse practitioner note: Patient scheduled for discharge tomorrow (12/02/18). A 30 day prescription of Abilify 2mg + Zoloft 150mg daily was sent to [facility] pharmacy, [address] [place] [id number]
[2018-12-01] MEDS: MELATONIN 5 MG TABLETS PO PRN (21:38)
[2018-12-01] MEDS: THIAMINE HCL 100 MG TABLET (FP) PO SCH (21:38)
[2018-12-01] MEDS: ARIPiprazole 2 MG TABLET PO SCH (21:38)
[2018-12-02 07:09] VITALS: TEMP 98.1
[2018-12-02] MEDS: amLODIPine BESYLATE 10 MG TABLET (FP) PO SCH (09:10)
[2018-12-02] MEDS: PRENATAL VITAMINS W/ FOLIC ACID TABLET (FP) PO SCH (09:10)
[2018-12-02] MEDS: SERTRALINE HCL 50 MG TABLET (FP) PO SCH (09:10)
[2018-12-02] MEDS ORDERED: PT OWN MED DRAWER 7, Y5N ONE (09:19)
[2018-12-02 10:11] VITALS: BP 161/94; PULSE 85
--- NOTE | 2018-12-02 15:55 | DS ---
[facility] Rehab Discharge Summary - [facility] Rehab Discharge Summary Admission Date: 11/13/18 Discharge Date: 12/02/18 - History Present History: Alcohol dependence, Cocaine dependence - Discharge Physical Exam Vital Signs: Vital Signs Temperature 98.1 F 12/02/18 07:08 Pulse Rate 85 12/02/18 10:10 Respiratory Rate 18 12/02/18 10:10 Blood Pressure 161/94 12/02/18 10:10 O2 Sat by Pulse Oximetry (%) Pertinent Admission Physical Exam Findings: ROS: DENIES ETOH CRAVINGS, SHAKES, SWEATING AND ANXIETY AT THIS TIME. PE: ALERT AND ORIENTED X 3 SKIN WARM AND DRY NECK SUPPLE, NO JVD CAR S1S2, RRR RESP CTA BL, NO WHEEZING, RALES - Treatment Discharge Condition: Discharge condition good Hospital Course: PATIENT ATTENDED GROUP MEETINGS AND STATES ACCOMPLISHING ALL REHAB GOALS. PATIENT SUSTAINED FALL 11/30/18, KNEE XRAY COMPLETED AND NEGATIVE FOR ACUTE FRACTURE. PATIENT MEDICALLY STABLE AT TIME OF D/C AND DENIES SI/HI. AFTERCARE ARRANGED FOR [facility]. Ambulatory Orders Hydroxyzine HCl 50 mg PO DAILY 11/09/18 Sertraline HCl [Zoloft -] 100 mg PO DAILY 11/09/18 Amlodipine Besylate [Norvasc -] 10 mg PO DAILY #30 tablet 12/01/18 Aripiprazole [Abilify -] 2 mg PO HS #30 tablet 12/01/18 Sertraline HCl [Zoloft -] 150 mg PO DAILY #90 tablet 12/01/18 Laboratory Tests 11/14/18 08:45 HIV 1&2 Antibody Screen Negative HIV P24 Antigen Negative - Medication Discharge Medications: Ambulatory Orders Hydroxyzine HCl 50 mg PO DAILY 11/09/18 Sertraline HCl [Zoloft -] 100 mg PO DAILY 11/09/18 Amlodipine Besylate [Norvasc -] 10 mg PO DAILY #30 tablet 12/01/18 Aripiprazole [Abilify -] 2 mg PO HS #30 tablet 12/01/18 Sertraline HCl [Zoloft -] 150 mg PO DAILY #90 tablet 12/01/18 - Medication-Assisted Treatment (MAT) Medication-Assisted Treatment (MAT): No MAT Follow-up Referral: [facility] IN [place], [place] - Discharge Instructions Diet, activity, other medical instructions: Diet: BRI, TOLERATED Activity: REG TOLERATED Other medical instructions: FOLLOW UP WITH PCP RECOMMENDED - Follow-up Referral Minutes to complete discharge: 30 - AMA Did Patient Leave Against Medical Advice: No
== END 2018-12-02 09:25 | disposition home or self-care (01) | DRG 772 ==
LOC: YASAS 12:37 → Y3W 12:38
PROVIDERS: ADMIT Neuromusculoskeletal Medicine & OMM; ATTEND Neuromusculoskeletal Medicine & OMM
PROC: HZ42ZZZ Group Counseling for Substance Abuse Treatment, Cognitive-Behavioral (ICD-10-PCS; principal; 2018-11-13)
DX: F10.20 Alcohol dependence, uncomplicated (principal); F14.20 Cocaine dependence, uncomplicated; F32.9 Major depressive disorder, single episode, unspecified; L30.9 Dermatitis, unspecified; S89.81XA Other specified injuries of right lower leg, initial encounter; W01.0XXA Fall on same level from slipping, tripping and stumbling without subsequent striking against object, initial encounter; Y93.E1 Activity, personal bathing and showering; Y92.231 Patient bathroom in hospital as the place of occurrence of the external cause; Y99.8 Other external cause status; Z88.0 Allergy status to penicillin
CPT/HCPCS: 36415; 73560-TC-RT-FY; 87389; 90670